=== PATIENT | male | born 1990 | race Two or more races ===

== ENCOUNTER 2025-11-09 20:03 | Emergency (ER) | payer BC, SELFPAY ==
[2025-11-09 20:06] VITALS: BMI 25.0
[2025-11-09 20:25] VITALS: BP 126/82; PULSE 56; RESP 16; TEMP 37; O2SAT 99
[2025-11-09] MEDS: FLUORESCEIN SOD 1 MG STRP RIGHT EYE (20:38)
[2025-11-09] MEDS: TETRACAINE PF OP SOL 0.5% 4 ML DRPETTE 1 DROP RIGHT EYE (20:39)
--- NOTE | 2025-11-09 20:47 | PD.EDEYE ---
ED Eye Problem RME/HPI General Chief complaint: Eye Problems Stated complaint: FB IN RIGHT EYE Time Seen by Provider: 11/09/25 20:27 Source: patient and family Arrival date/time: 11/09/25 20:03 Mode of arrival: ambulatory Limitations: no limitations RME / HPI RME / HPI Narrative: This patient is a pleasant 35-year-old male who arrives to the ED today for evaluation of right eye pain concerns. Patient states he was working in his shop when a metal fragment was ejected from a tool and struck him in the right eye. Patient states he feels like he has the fragment still in his eye. Patient denies any change in vision. No blood loss. Related Data Previous Rx's ?Medication ?Instructions ?Recorded ibuprofen 800 mg tablet (IBU) 800 mg PO Q8H PRN pain #10 tabs 11/09/25 neomycin 3.5 mg-polymyxin 10,000 1 drp ophthalmic (eye) Q6H 3 days 11/09/25 unit-hydrocort 10 mg/mL eye #2.5 mL drop,susp Allergies Allergy/AdvReac Type Severity Reaction Status Date / Time No Known Allergies Allergy Verified 11/09/25 20:05 Review of Systems Review of Systems Systems Reviewed: All systems reviewed, normal except as documented Past Medical History Social History SMOKING STATUS: Never smoker ED Exam General Limitations: Present no limitations General appearance: Present alert and in distress (Moderate stress due to right eye pain concerns.) Head Head exam: Present atraumatic Eye Eye exam: Present other (Fluorescein stain evaluation under a black lighted of the right eye revealed a center area of initial trauma with some inferior abrasion noted. No Sidel sign was appreciated. No entrapped foreign bodies appreciated.) ENT ENT exam: Present normal exam, normal oropharynx and mucous membranes moist Neck Neck exam: Present normal inspection, full ROM and trachea midline Chest Chest inspection: Present normal inspection and symmetric chest wall rise Respiratory Respiratory exam: Present normal lung sounds bilaterally Cardiovascular Cardiovascular exam: Present regular rate, normal rhythm and normal heart sounds Abdominal Exam Abdominal exam: Present soft and normal bowel sounds Extremities Exam Extremities exam: Present normal inspection and full ROM Back Exam Back exam: Present normal inspection and full ROM Neurological Exam Neurological exam: Present alert, oriented X3 and CN II-XII intact Psychiatric Psychiatric exam: Present normal affect and normal mood Skin Skin exam: Present warm, dry, intact and normal color Course Quality Measures none Orders Category Date Time Status Fluorescein Sodium [Bio-Mary Anne] Med 11/09/25 20:30 Discontinued 1 mg RIGHT EYE X1 ONE TETRACAINE Op Diane 0.5% [Pontocaine Op Diane 0.5%] Med 11/09/25 20:31 Discontinued 1 drop RIGHT EYE X1 ONE As noted above Vital Signs Vital signs: Vital Signs Temperature 98.6 F 11/09/25 20:25 Pulse Rate 56 L 11/09/25 20:25 Respiratory Rate 16 11/09/25 20:25 Blood Pressure 126/82 11/09/25 20:25 Pulse Oximetry (%) 99 11/09/25 20:25 Oxygen Delivery Method Room Air 11/09/25 20:25 As noted above Eye MDM Narrative MDM Narrative:: Advised the patient that his eye evaluation showed he has suffered a mild corneal abrasion. Patient will be prescribed antibiotic eyedrops to stave off any infective concerns. Pain medication as needed. Patient data External records reviewed:: [facility] previous records Clinical information provided by:: patient Social determinants that could affect healthcare access:: none Patient has the following chronic illnesses:: None How is presenting disease/condition affected by chronic disease/condition?: no chronic disease Evaluation data The following diagnostics were reviewed and interpreted by me:: other (specify) Lab and/or radiology exams considered but not ordered:: None Interpretation Summary: None Medications / Prescriptions Medications or Prescriptions considered but not ordered:: None Medication administrations:: Medication Administration History Discontinued Medications Fluorescein Sodium (Fluorescein Sod 1 Mg Strp) 1 mg RIGHT EYE X1 ONE Stop: 11/09/25 20:31 Last Admin: 11/09/25 20:38 Dose: 1 mg Documented By: MANUELA Comments: administered by chloe rob Tetracaine HCl (Tetracaine Pf Op Diane 0.5% 4 Ml Drpette) 1 drop RIGHT EYE X1 ONE Stop: 11/09/25 20:32 Last Admin: 11/09/25 20:39 Dose: 1 drop Documented By: MANUELA Comments: administered by chloe rob As noted above Consultations Consultation(s) initiated? (list below): No Diagnosis Eye Problem Differential Diagnosis: corneal abrasion Most likely diagnosis given after review of the tests above:: Corneal abrasion Admission Indicated Admission indicated?: not indicated Explain why admission is indicated or not indicated:: Unwarranted Admission Request Was there a request for admission?: No Disposition Plan Disposition Plan: Discharge Discharge Attestation Discharge Attestation: The patient and all family members were given an opportunity to ask questions and understood the discharge instructions. Discharge instructions specifically effects, indications for sooner follow up or return to the emergency department, and the expected course of current diagnosis. Patient condition: Stable Discharge Plan Plan Patient Disposition: HOME (Self Care) Prescriptions/Referrals Prescriptions/Med Rec: New bujcapcl-cbyqkywug-MG 3.5-10,000-10 mg-unit-mg/mL drops,suspension 1 drp ophthalmic (eye) Q6H 3 Days Qty: 2.5 0RF ibuprofen [IBU] 800 mg tablet 800 mg PO Q8H PRN (Reason: pain) Qty: 10 0RF Problem List Clinical Impression: Corneal abrasion Patient/Caregiver Discharge Instructions Education Materials: Corneal Injury Additional Instructions: Advise utilizing antibiotic eyedrops as directed and to completion and pain medication as needed. Print Language: [place] Stand Alone Forms: Kerry Award Info., Patient Portal Info Letter
== END 2025-11-09 21:37 | disposition home or self-care (01) ==
PROVIDERS: Emergency Provider Physician Assistant
DX: S05.01XA Injury of conjunctiva and corneal abrasion without foreign body, right eye, initial encounter (principal); W22.8XXA Striking against or struck by other objects, initial encounter; Y93.89 Activity, other specified
CPT/HCPCS: 99281